=== PATIENT | female | born 1975 | race Caucasian/White ===

== ENCOUNTER 2023-07-20 17:12 | Emergency (ER) | payer OTHER ==
[2023-07-20] MEDS ORDERED: Ketorolac 30 MG/ML SDV IM ONE (17:33)
== END 2023-07-20 18:56 | disposition home or self-care (01) ==
LOC: FB.ED 17:12
DX: S80.12XA Contusion of left lower leg, initial encounter (principal); S20.219A Contusion of unspecified front wall of thorax, initial encounter; W11.XXXA Fall on and from ladder, initial encounter
CPT/HCPCS: 71046; 73590; 96372; 99283; J1885

== ENCOUNTER 2025-09-15 17:48 | Emergency (ER) | payer OTHER ==
[2025-09-15] MEDS ORDERED: Ondansetron 4 MG Tab.DIS PO ONE (17:49)
[2025-09-15] MEDS: Morphine 10 MG/ML SDV IM ONE (18:18)
[2025-09-15] MEDS: Ondansetron 4 MG Tab.DIS PO ONE (18:18)
== END 2025-09-15 19:50 | disposition home or self-care (01) ==
LOC: FB.ED 17:48
DX: S06.0X1A Concussion with loss of consciousness of 30 minutes or less, initial encounter (principal); S16.1XXA Strain of muscle, fascia and tendon at neck level, initial encounter; S30.0XXA Contusion of lower back and pelvis, initial encounter; Z79.899 Other long term (current) drug therapy; W00.9XXA Unspecified fall due to ice and snow, initial encounter
CPT/HCPCS: 70450; 70486; 72125; 72220; 96372; 99284; A9270; J2272; Q0162